=== PATIENT | female | born 1965 | race Caucasian/White ===

== ENCOUNTER → 2018-06-05 01:03 | Outpatient (CLI) | payer OTHER, SELFPAY | PROVIDERS: PCP Nurse Practitioner Family; Visit Provider Dermatology | DX: L40.9 Psoriasis, unspecified (principal) ==

== ENCOUNTER → 2018-06-07 00:56 | Outpatient (CLI) | payer OTHER, SELFPAY | PROVIDERS: PCP Nurse Practitioner Family; Visit Provider Dermatology | DX: L40.9 Psoriasis, unspecified (principal); Z53.8 Procedure and treatment not carried out for other reasons ==

== ENCOUNTER 2018-12-13 07:39 | Emergency (ER) | payer OTHER, SELFPAY ==
[2018-12-13 07:44] VITALS: BP 125/54; PULSE 78; RESP 18; TEMP 37; O2SAT 100
--- NOTE | 2018-12-13 08:09 | DI.RAD_ITS ---
SYMPTOM/DIAGNOSIS: RT SHOULDER PAIN, RT HIP PAIN RIGHT HIP: Two views were obtained. The patient reportedly has a history of mastocytosis. There is a question of diffuse abnormality of marrow pattern, most marked involving femoral neck and proximal metaphysis. The possibility of a space occupying marrow lesion would have to be raised. There is no evidence of acute fracture and the hip joint appears well maintained. RIGHT SHOULDER: Five views were obtained. There is a question of patchy marrow decreased attenuation seen in humeral head and proximal shaft in a patient with known mastocytosis. The findings may represent marrow involvement. No acute fracture. No dislocation. Question is also raised of subtle change in appearance of the ribs which could represent mastocytosis as well. CONCLUSION: No evidence of acute fracture or dislocation.
[2018-12-13] MEDS: Acetaminophen 500 MG TAB 1000 MG PO (08:17)
[2018-12-13] MEDS: Lidocaine 5% Patch 2 PATCH TP (08:17)
--- NOTE | 2018-12-13 08:21 | W.ED.GENAD ---
Discharge Plan Disposition Patient Disposition: HOME Condition: Good Discharge Details Chief Complaint: GenMedical Clinical Impression: Tendinitis, Acute pain of right shoulder, Acute pain of right hip Primary Care Provider: Anni Carmen ED Provider: Benji Phoenix Home Meds and New Rx's Prescriptions: New lidocaine [Lidoderm] 1 PATCH patch 1 patch Topical Q24H Qty: 4 RF: 0 No Action cetirizine 10 MG tablet 10 mg PO DAILY Qty: 90 RF: 3 montelukast 10 MG tablet 10 mg PO DAILY Qty: 90 RF: 3 ibuprofen 600 MG tablet 600 mg PO TID PRNRF: 0 clobetasol 0.05 % cream 1 applic TP BID RF: 0 calcipotriene 0.005 % cream 1 applic TP BID RF: 0 Discharge Instructions Instructions: Tendinitis (ED) Additional Instructions: Please use ice, Tylenol for control of your pain. Please use Lidoderm patches as directed. If you notice any redness, warmth or worsening of your pain please return immediately. Please make sure to make your follow-up appointment this Sunday with your specialist in [place]. if you notice any worsening of your symptoms, or any new symptoms such as vomiting, diarrhea, fever, chills, shortness of breath, chest pain, numbness, weakness, or fainting , please return immediately to the emergency department for reevaluation. Please follow up with your primary care provider as soon as possible for reassessment and reevaluation. As always, it was a pleasure participating in your medical care today. Referrals: Anni Carmen, ELECTRICAL LABORATORY TECHNICIAN [Primary Care Provider] - Medical Decision Making This is a pleasant 53-year-old female with a past medical history of chronic mastocytosis for which she is normally seen and managed at [place] very closely. She presents today for complaint of right shoulder and right hip pain with no traumatic event, that started last night and continued this morning. She was recently stopped on her normal Rydapt medication 2 weeks ago and started on steroids as she is going to be transitioning to a new clinical trial. She denies any history of recent trauma. She denies any concerning symptoms of fever or chills. Vital signs are normal and reassuring. Physical exam demonstrates pain with external rotation of the shoulder and posterior movement, concern for impingement syndrome versus rotator cuff injury, palpation and exam of the right hip demonstrates pain only with logroll. Normal strength otherwise. Normal neurovascular exam throughout. Signs and symptoms show no signs of significant trauma, however we will get x-rays to rule out acute fracture. She is certainly at risk with her steroid use. We will treat the patient's pain, evaluate for less likely infection, and reassess. 9:06 AM X-rays have been performed, and discussed the case personally with Dr. Harvey, there is no evidence of acute fracture process. He does note that there is some abnormalities in the patient's bone marrow which is most likely secondary to the patient's chronic mastocytosis. No evidence of significant effusion, avascular necrosis or other abnormality for the hip or shoulder. We are still waiting on lab results at this time. 10:27 AM Laboratory workup has returned, minimally elevated white count at 11.13 which is certainly within normal limits for someone who is been on steroids for the last 2 weeks. ESR and CRP are relatively equivocal, mildly elevated ESR at 55, mildly elevated CRP at 2.14. Repeat exam continues to show no signs of warmth, redness, or signs of significant infection on clinical exam. The patient is actually feeling much better after the Lidoderm patches at this time. She feels that she is ready to go home. I did contact Dr. Alarcon the orthopedic surgeon, and he states that he is unfamiliar with the disease and has no additional recommendations based on the labs and imaging and clinical presentation. I did contact the patient's [facility] in [place], and I discussed the case with her, after reviewing the labs, imaging, and clinical scenario she has no additional recommendations but does recommend her continue close follow-up on Sunday. She has requested that the labs and images be sent and faxed to her at a fax number [phone]. These will be sent. With the patient feeling and looking well, no evidence of severe infection on clinical exam, normal and reassuring vital signs, and resolution of her symptoms Lidoderm patch, I feel her symptoms may be secondary to a mild tendinitis or mild ligamentous injury. With no signs of avascular necrosis, fracture or other significant trauma I feel that she can be safely discharged home with close follow-up with her primary care provider. We discussed red flags which to return the patient understands I have extensively reviewed the treatment plan and discharge instructions with the patient and their family. I have addressed all patient concerns at this time. The patient and family was made aware of what symptoms to monitor for that would warrant a return to the emergency department. Discussed the plan with the patient and family, they demonstrate verbal understanding and agreement with our assessment and plan at this time. HPI General Date/Time Provider Initiated Documentation: 12/13/18 07:53. HPI Narrative: This is a 53-year-old female with a past medical history of mastocytosis chronically, who was seen at [place] for multiple clinical trials and manage down there, who presents today for 1 day of right hip and right shoulder pain. It was present last night but relatively mild, however this morning when she got up to go to work she had notable worsening of her symptoms and felt that she could not drive secondary to the pain. Pain is worse with movement, primarily external rotation and posterior movement of the right shoulder, so she is generalized movement of the hip. She describes the pain as aching sensation. She has never had symptoms like this before. She denies any recent trauma or changes in activity. She recently did have a bone density scan which she states was normal, this is performed in [place]. She has been on steroids for the last 2 weeks as she recently stopped her RYDAPT 2 weeks ago as she is about to begin a new clinical trial on a new medication for her mastocytosis. Patient denies any other medication changes. She denies any history of orthopedic problems. She is on Singulair and Zyrtec for her mastocytosis but denies any other current medication use. The patient denies any red flag symptoms of fever, chills, IV drug use, recent infection, sick contacts. She does have a chronic history of a cardiac murmur since childhood. She denies any recent surgical history, or pertinent family history. She denies any history of cardiac disease, any exertional component of her symptomatology, any associated shortness of breath, neck pain, chest pain, or chest pressure. Related Data Home Medications Medication Instructions Recorded Confirmed cetirizine 10 mg PO DAILY #90 tab-cap 03/14/13 12/13/18 montelukast 10 mg PO DAILY #90 tab-cap 03/14/13 12/13/18 ibuprofen 600 mg PO TID PRN tab-cap 09/29/13 12/13/18 calcipotriene 0.005 % topical cream 1 applic TP BID 12/10/18 clobetasol 0.05 % topical cream 1 applic TP BID 12/10/18 12/13/18 lidocaine [Lidoderm] 1 patch TOPICAL Q24H #4 patch 12/13/18 Previous Rx's Medication Instructions Recorded lidocaine [Lidoderm] 1 patch TOPICAL Q24H #4 patch 12/13/18 Allergies Allergy/AdvReac Type Severity Reaction Status Date / Time budesonide [From Entocort EC] Allergy Unknown Unverified 09/18/17 15:23 General Stated Complaint: GenMedical COLBY: 3 Review of Systems Review of Systems All systems reviewed & are unremarkable except as noted in HPI and below PFSH Medical History Abnormal Pap smear of cervix Malignant mastocytosis Psoriasis Social History Smoking and Tabacco status: Never Exam Narrative Exam Narrative: 1.Const: Well-nourished, Well-developed, appearing stated age 2.Eyes: PERRL, no conjunctival injection, and symmetrical lids. 3.ENT: Atraumatic external nose and ears. Moist MM. Neck: Symmetric, trachea midline, No thyromegaly. 4.CVS: +S1/S2, grade 1 murmur is noted. Peripheral pulses 2+ and equal in all extremities. Brisk capillary refill in all extremities. 5.RESP: Unlabored respiratory effort. Clear to auscultation bilaterally. No wheezes rales or rhonchi 6.GI: Soft, Nontender/Nondistended, No hepatosplenomegaly. No guarding or rebound. 7.MSK: Normocephalic/Atraumatic, Extremities w/o deformity. No cyanosis or clubbing, no reproducible tenderness on palpation of the shoulder or the hip, however in regards to the right shoulder notable reproduction of symptoms and pain with external rotation, as well as posterior movement of the shoulder. No evidence of crepitus. Normal strength and movement with abduction, flexion, internal rotation, flexion at the elbow and extension at the elbow. No evidence of numbness tingling or weakness with good sensation throughout, +2 radial pulses bilaterally, good radio adjuster strength, and good movement of fingers and wrist. The patient's right hip also demonstrates no reproducible tenderness on palpation, notable worsening of symptoms with logroll of the right hip. No significant pain with flexion, extension, normal strength of the hip with 5 out of 5 strength for movement in all directions including abduction and abduction. 5 out of 5 strength for plantar and dorsiflexion. +2 dorsalis pedis and posterior tibial pulse bilaterally, sensation intact throughout. Brisk capillary refill. No rednes and no warmth, no signs of an infection. 8.Skin: Warm, Dry. No rashes or lesions. 9.Neuro: senior net programmer II-XII grossly intact. Sensation grossly intact, no focal neurologic deficits. 10.Psych: (AAO) x3. Appropriate mood and affect Course Vital Signs Temperature 37.0 C 12/13/18 07:44 Pulse 78 12/13/18 07:44 Respiratory Rate 18 12/13/18 07:44 Blood Pressure 125/54 L 12/13/18 07:44 Pulse Oximetry 100 12/13/18 07:44 Temperature 37.0 C 12/13/18 07:44 Temperature Source Temporal Artery Scan 12/13/18 07:44 Pulse 78 12/13/18 07:44 Respiratory Rate 18 12/13/18 07:44 Respiratory Effort 12/13/18 08:08 Respiratory Depth Normal 12/13/18 08:08 Respiratory Pattern Normal 12/13/18 08:08 Blood Pressure 125/54 L 12/13/18 07:44 Blood Pressure Position Supine 12/13/18 07:44 Pulse Oximetry 100 12/13/18 07:44 Oxygen Delivery Method Room Air 12/13/18 07:44 Oxygen Flow Rate 0 12/13/18 07:44 Pain Level 10 12/13/18 07:44
[2018-12-13 08:26] LABS: HGB 11.1 g/dL (12.0-15.5); Mean Corp. HGB Concentration 32.6 g/dL (32.0-36.0); Mean Corpuscular Hemoglobin 30.1 pg (27.0-33.0); Mean Corpuscular Volume 92.1 fL (80-95); Mean Platelet Volume 11.5 fL (8.0-11.0); Platelet Count 359 x1000/uL (130-400); RBC 3.69 m/cumm (4.00-5.20); RBC Distribution Width 16.1 % (11.7-14.6); White Blood Cell Count 11.13 k/cumm (4.4-10.8)
[2018-12-13 08:41] LABS: ALT 43 U/L (12-78); AST 14 U/L (15-37); Albumin 3.5 g/dL (3.4-5.0); Alkaline Phosphatase 376 U/L (46-116); Anion Gap 9.3 mmol/L (3-11); BUN 9 mg/dL (7-18); Bilirubin, Total 0.5 mg/dL (0.2-1.0); CO2 26.7 mmol/L (21.0-32.0); CREATININE 0.49 mg/dL (0.55-1.02); Calcium 8.9 mg/dL (8.5-10.1); Chloride 105 mmol/L (98-107); Glucose 87 mg/dL (70-100); Potassium 3.6 mmol/L (3.5-5.1); Sodium 141 mmol/L (136-145); Total Protein 7.7 g/dL (6.4-8.2)
[2018-12-13 08:43] LABS: Absolute Lymphocyte Count 2.45 k/cumm (1.2-3.4); Absolute Monocyte Count 1.11 k/cumm (0.11-0.7); Absolute Neutrophil Count 7.23 k/cumm (1.2-6.7)
[2018-12-13 08:44] LABS: Anisocytosis 2+; Diff Comment Manual Differential; Polychromasia Present
[2018-12-13 08:45] LABS: Poikilocytes 2+
[2018-12-13 08:48] VITALS: BP 110/36; PULSE 75; RESP 14; TEMP 36.8; O2SAT 99
--- NOTE | 2018-12-13 08:49 | NUR.NOTE ---
pt stated that pain is 0/10 without moving and with moving pain is 10/10 er doctor notified Nursing Note:
[2018-12-13 09:03] LABS: C-Reactive Protein 2.14 mg/dL (0.0-0.3)
[2018-12-13 09:18] LABS: ESR 55 MM/HR (0-30)
[2018-12-13 09:30] VITALS: BP 112/48; PULSE 80; RESP 16; O2SAT 98
--- NOTE | 2018-12-13 09:31 | NUR.NOTE ---
pt stated that pain is still 10/10 with movement Nursing Note:
[2018-12-13 10:43] VITALS: BP 105/47; PULSE 73; RESP 16; TEMP 37; O2SAT 96
[2018-12-13 10:44] VITALS: BP 105/47; PULSE 73; RESP 16; TEMP 37; O2SAT 96
== END 2018-12-13 10:54 | disposition home or self-care (01) ==
PROVIDERS: Emergency Provider Student in an Organized Health Care Education/Training Program; PCP Nurse Practitioner Family
DX: M25.511 Pain in right shoulder (principal); M25.551 Pain in right hip; M77.9 Enthesopathy, unspecified; D47.09 Other mast cell neoplasms of uncertain behavior; R70.0 Elevated erythrocyte sedimentation rate; R79.82 Elevated C-reactive protein (CRP)
CPT/HCPCS: 80053; 85652; 99284; 73030; 73502; 85025; 86140

== ENCOUNTER 2019-01-08 08:17 | Outpatient (CLI) | payer OTHER, SELFPAY | END 2019-01-08 08:37 | PROVIDERS: PCP Nurse Practitioner Family; Visit Provider Nurse Practitioner Family | DX: D47.02 Systemic mastocytosis (principal) | CPT/HCPCS: 36415; 86850; 86900; 86901; 86920; 85025 ==

== ENCOUNTER 2019-01-16 01:44 | Outpatient (RCR) | payer OTHER, SELFPAY ==
[2019-01-08 08:43] LABS: Absolute Lymphocyte Count 0.92 k/cumm (1.2-3.4); Absolute Monocyte Count 0.25 k/cumm (0.11-0.7); Absolute Neutrophil Count 2.69 k/cumm (1.2-6.7); HCT 23.3 % (36.0-46.0); HGB 7.7 g/dL (12.0-15.5); Lymphocytes % 23.8; Mean Corpuscular Hemoglobin 30.4 pg (27.0-33.0); Mean Corpuscular Volume 92.1 fL (80-95); Mean Platelet Volume 9.1 fL (8.0-11.0); Monocytes % 6.5; Neutrophils % 69.7; RBC 2.53 m/cumm (4.00-5.20); RBC Distribution Width 18.6 % (11.7-14.6); White Blood Cell Count 3.86 k/cumm (4.4-10.8)
[2019-01-08 09:50] LABS: Anisocytosis 2+; Diff Comment RBC Morph Reviewed; Platelet Count 207 x1000/uL (130-400); Poikilocytes 1+
[2019-01-10] VITALS (7 sets, daily range): BP systolic 106–128; BP diastolic 40–53; PULSE 74–80; RESP 16–18; TEMP 36.1–36.7; O2SAT 98–100
[2019-01-10] MEDS: Acetaminophen 325 MG TAB 650 MG PO (10:51)
[2019-01-10] MEDS: diphenhydrAMINE 25 MG CAP PO (10:51)
[2019-01-15 09:41] LABS: Absolute Monocyte Count 0.14 k/cumm (0.11-0.7); HGB 7.6 g/dL (12.0-15.5); Mean Corpuscular Hemoglobin 30.6 pg (27.0-33.0); Mean Corpuscular Volume 92.7 fL (80-95); Mean Platelet Volume 9.9 fL (8.0-11.0); Platelet Count 186 x1000/uL (130-400); RBC 2.48 m/cumm (4.00-5.20); RBC Distribution Width 19.6 % (11.7-14.6); White Blood Cell Count 2.27 k/cumm (4.4-10.8)
[2019-01-15 10:22] LABS: Absolute Lymphocyte Count 0.75 k/cumm (1.2-3.4); Absolute Neutrophil Count 1.34 k/cumm (1.2-6.7)
[2019-01-15 10:23] LABS: Absolute Eosinophil Count 0.05 k/cumm (0.0-0.7)
[2019-01-15 10:24] LABS: Anisocytosis 2+; Diff Comment Manual Differential; Hypochromasia 2+; Microcytosis 1+; Poikilocytes 1+; Schistocytes 2+
[2019-01-16 10:23] VITALS: BP 120/61; PULSE 81; RESP 18; TEMP 36.4; O2SAT 100
[2019-01-16 10:34] VITALS: BP 116/60; PULSE 73; RESP 18; TEMP 36.4; O2SAT 100
[2019-01-16 10:49] VITALS: BP 114/51; PULSE 74; RESP 18; TEMP 36.6; O2SAT 100
[2019-01-16 11:19] VITALS: BP 114/63; PULSE 75; RESP 18; TEMP 37.2; O2SAT 99
[2019-01-16] MEDS: Normal Saline Flush 10 ML SYR IVP (11:50)
[2019-01-16 12:19] VITALS: BP 124/68; PULSE 79; RESP 18; TEMP 36; O2SAT 99
[2019-01-16 12:48] VITALS: BP 117/53; PULSE 78; RESP 18; TEMP 37.1; O2SAT 100
== END 2019-02-02 23:59 | disposition home or self-care (01) ==
LOC: INF 01:44
PROVIDERS: PCP Nurse Practitioner Family; Visit Provider Internal Medicine
DX: D47.02 Systemic mastocytosis (principal)
CPT/HCPCS: 36415; 36430; 86850; 86900; 86901; 86920; 86945; 85025; P9016

== ENCOUNTER 2019-01-29 08:54 | Outpatient (CLI) | payer OTHER, SELFPAY ==
[2019-01-29 09:48] LABS: Abs Immature Grans 0.01 k/cumm (0.0-0.09); Absolute Basophil Count 0.01 k/cumm (0.0-0.2); Absolute Lymphocyte Count 1.01 k/cumm (1.2-3.4); Absolute Monocyte Count 0.33 k/cumm (0.11-0.7); Absolute Neutrophil Count 1.01 k/cumm (1.2-6.7); Basophils % 0.4; HGB 9.1 g/dL (12.0-15.5); Immature Grans % 0.4; Lymphocytes % 42.6; Mean Corp. HGB Concentration 33.7 g/dL (32.0-36.0); Mean Corpuscular Hemoglobin 32.5 pg (27.0-33.0); Mean Corpuscular Volume 96.4 fL (80-95); Mean Platelet Volume 9.7 fL (8.0-11.0); Monocytes % 13.9; Neutrophils % 42.7; Platelet Count 177 x1000/uL (130-400); RBC Distribution Width 21.1 % (11.7-14.6); White Blood Cell Count 2.37 k/cumm (4.4-10.8)
[2019-01-29 10:14] LABS: Anisocytosis 2+
[2019-01-29 10:15] LABS: Poikilocytes 1+
[2019-01-29 10:16] LABS: Microcytosis 1+
[2019-01-29 10:17] LABS: Polychromasia Present
== END 2019-01-29 09:14 ==
PROVIDERS: PCP Nurse Practitioner Family; Visit Provider Nurse Practitioner Adult Health
DX: D47.02 Systemic mastocytosis (principal)
CPT/HCPCS: 36415; 85025

== ENCOUNTER 2019-02-05 09:27 | Outpatient (CLI) | payer OTHER, SELFPAY ==
[2019-02-05 10:00] LABS: Absolute Basophil Count 0.01 k/cumm (0.0-0.2); Absolute Lymphocyte Count 0.83 k/cumm (1.2-3.4); Absolute Monocyte Count 0.26 k/cumm (0.11-0.7); Absolute Neutrophil Count 1.11 k/cumm (1.2-6.7); Basophils % 0.5; HCT 25.4 % (36.0-46.0); HGB 8.4 g/dL (12.0-15.5); Lymphocytes % 37.6; Mean Corp. HGB Concentration 33.1 g/dL (32.0-36.0); Mean Corpuscular Hemoglobin 32.3 pg (27.0-33.0); Mean Corpuscular Volume 97.7 fL (80-95); Monocytes % 11.8; Neutrophils % 50.1; Platelet Count 176 x1000/uL (130-400); RBC Distribution Width 20.7 % (11.7-14.6); White Blood Cell Count 2.21 k/cumm (4.4-10.8)
[2019-02-05 13:08] LABS: Anisocytosis 2+; Polychromasia Present
== END 2019-02-05 09:47 ==
PROVIDERS: PCP Nurse Practitioner Family; Visit Provider Nurse Practitioner Adult Health
DX: D47.02 Systemic mastocytosis (principal)
CPT/HCPCS: 36415; 85025

== ENCOUNTER 2019-02-12 09:28 | Outpatient (CLI) | payer OTHER, SELFPAY ==
[2019-02-12 10:15] LABS: Absolute Lymphocyte Count 0.75 k/cumm (1.2-3.4); Absolute Monocyte Count 0.19 k/cumm (0.11-0.7); Absolute Neutrophil Count 1.11 k/cumm (1.2-6.7); HCT 24.7 % (36.0-46.0); HGB 8.1 g/dL (12.0-15.5); Lymphocytes % 36.6; Mean Corp. HGB Concentration 32.8 g/dL (32.0-36.0); Mean Corpuscular Hemoglobin 32.5 pg (27.0-33.0); Mean Corpuscular Volume 99.2 fL (80-95); Mean Platelet Volume 9.2 fL (8.0-11.0); Monocytes % 9.3; Neutrophils % 54.1; Platelet Count 221 x1000/uL (130-400); RBC 2.49 m/cumm (4.00-5.20); RBC Distribution Width 20.3 % (11.7-14.6); White Blood Cell Count 2.05 k/cumm (4.4-10.8)
[2019-02-12 11:13] LABS: Anisocytosis 2+; Poikilocytes 1+
== END 2019-02-12 09:48 ==
PROVIDERS: PCP Nurse Practitioner Family; Visit Provider Nurse Practitioner Adult Health
DX: D47.02 Systemic mastocytosis (principal)
CPT/HCPCS: 36415; 85025

== ENCOUNTER 2019-02-26 16:21 | Outpatient (CLI) | payer OTHER, SELFPAY ==
[2019-02-26 16:46] LABS: Absolute Basophil Count 0.01 k/cumm (0.0-0.2); Absolute Lymphocyte Count 0.94 k/cumm (1.2-3.4); Absolute Monocyte Count 0.33 k/cumm (0.11-0.7); Absolute Neutrophil Count 1.32 k/cumm (1.2-6.7); Basophils % 0.4; HCT 25.2 % (36.0-46.0); HGB 8.4 g/dL (12.0-15.5); Lymphocytes % 36.2; Mean Corp. HGB Concentration 33.3 g/dL (32.0-36.0); Mean Corpuscular Hemoglobin 32.6 pg (27.0-33.0); Mean Corpuscular Volume 97.7 fL (80-95); Mean Platelet Volume 8.9 fL (8.0-11.0); Monocytes % 12.7; Neutrophils % 50.7; Platelet Count 178 x1000/uL (130-400); RBC 2.58 m/cumm (4.00-5.20); RBC Distribution Width 18.4 % (11.7-14.6)
[2019-02-26 20:42] LABS: Anisocytosis 2+; Diff Comment RBC Morph Reviewed
== END 2019-02-26 16:41 ==
PROVIDERS: PCP Nurse Practitioner Family; Visit Provider Nurse Practitioner Adult Health
DX: D47.02 Systemic mastocytosis (principal)
CPT/HCPCS: 36415; 85025

== ENCOUNTER 2019-03-05 16:21 | Outpatient (CLI) | payer OTHER, SELFPAY ==
[2019-03-05 16:47] LABS: HCT 24.7 % (36.0-46.0); HGB 8.2 g/dL (12.0-15.5); Mean Corp. HGB Concentration 33.2 g/dL (32.0-36.0); Mean Corpuscular Hemoglobin 32.4 pg (27.0-33.0); Mean Corpuscular Volume 97.6 fL (80-95); Platelet Count 176 x1000/uL (130-400); RBC 2.53 m/cumm (4.00-5.20); RBC Distribution Width 16.9 % (11.7-14.6); White Blood Cell Count 2.42 k/cumm (4.4-10.8)
[2019-03-05 18:51] LABS: Absolute Lymphocyte Count 0.97 k/cumm (1.2-3.4); Absolute Neutrophil Count 1.21 k/cumm (1.2-6.7); Atypical Lymphocytes % 4
[2019-03-05 18:52] LABS: Absolute Monocyte Count 0.24 k/cumm (0.11-0.7); Diff Comment Manual Differential; RBC Morphology Normal
== END 2019-03-05 16:41 ==
PROVIDERS: PCP Nurse Practitioner Adult Health; Visit Provider Nurse Practitioner Adult Health
DX: D47.02 Systemic mastocytosis (principal)
CPT/HCPCS: 36415; 85025

== ENCOUNTER 2019-03-12 16:22 | Outpatient (CLI) | payer OTHER, SELFPAY ==
[2019-03-12 16:51] LABS: Absolute Lymphocyte Count 0.99 k/cumm (1.2-3.4); Absolute Monocyte Count 0.33 k/cumm (0.11-0.7); Absolute Neutrophil Count 1.41 k/cumm (1.2-6.7); HCT 23.6 % (36.0-46.0); HGB 7.9 g/dL (12.0-15.5); Lymphocytes % 36.3; Mean Corp. HGB Concentration 33.5 g/dL (32.0-36.0); Mean Corpuscular Hemoglobin 33.1 pg (27.0-33.0); Mean Corpuscular Volume 98.7 fL (80-95); Mean Platelet Volume 8.7 fL (8.0-11.0); Monocytes % 12.1; Neutrophils % 51.6; Platelet Count 199 x1000/uL (130-400); RBC 2.39 m/cumm (4.00-5.20); RBC Distribution Width 16.5 % (11.7-14.6); White Blood Cell Count 2.73 k/cumm (4.4-10.8)
[2019-03-12 20:21] LABS: Anisocytosis 2+; Diff Comment RBC Morph Reviewed
== END 2019-03-12 16:42 ==
PROVIDERS: PCP Nurse Practitioner Adult Health; Visit Provider Nurse Practitioner Adult Health
DX: D47.02 Systemic mastocytosis (principal)
CPT/HCPCS: 36415; 85025

== ENCOUNTER 2019-03-26 16:21 | Outpatient (CLI) | payer OTHER, SELFPAY ==
[2019-03-26 16:37] LABS: Absolute Basophil Count 0.01 k/cumm (0.0-0.2); Absolute Lymphocyte Count 0.95 k/cumm (1.2-3.4); Absolute Monocyte Count 0.52 k/cumm (0.11-0.7); Absolute Neutrophil Count 1.72 k/cumm (1.2-6.7); Basophils % 0.3; HGB 8.6 g/dL (12.0-15.5); Lymphocytes % 29.7; Mean Corp. HGB Concentration 33.1 g/dL (32.0-36.0); Mean Corpuscular Hemoglobin 32.8 pg (27.0-33.0); Mean Corpuscular Volume 99.2 fL (80-95); Mean Platelet Volume 8.5 fL (8.0-11.0); Monocytes % 16.3; Neutrophils % 53.7; Platelet Count 238 x1000/uL (130-400); RBC 2.62 m/cumm (4.00-5.20); RBC Distribution Width 15.3 % (11.7-14.6)
== END 2019-03-26 16:41 ==
PROVIDERS: PCP Nurse Practitioner Adult Health; Visit Provider Nurse Practitioner Adult Health
DX: D47.02 Systemic mastocytosis (principal)
CPT/HCPCS: 36415; 85025

== ENCOUNTER 2019-04-02 16:29 | Outpatient (CLI) | payer OTHER, SELFPAY ==
[2019-04-02 18:16] LABS: Absolute Basophil Count 0.01 k/cumm (0.0-0.2); Absolute Lymphocyte Count 0.87 k/cumm (1.2-3.4); Absolute Monocyte Count 0.43 k/cumm (0.11-0.7); Absolute Neutrophil Count 1.28 k/cumm (1.2-6.7); Basophils % 0.4; HGB 8.7 g/dL (12.0-15.5); Lymphocytes % 33.6; Mean Corp. HGB Concentration 33.5 g/dL (32.0-36.0); Mean Corpuscular Hemoglobin 33.3 pg (27.0-33.0); Mean Corpuscular Volume 99.6 fL (80-95); Mean Platelet Volume 9.4 fL (8.0-11.0); Monocytes % 16.6; Neutrophils % 49.4; Platelet Count 252 x1000/uL (130-400); RBC 2.61 m/cumm (4.00-5.20); RBC Distribution Width 14.9 % (11.7-14.6); White Blood Cell Count 2.59 k/cumm (4.4-10.8)
[2019-04-02 18:38] LABS: Diff Comment Diff Reviewed; RBC Morphology Normal
== END 2019-04-02 16:49 ==
PROVIDERS: PCP Nurse Practitioner Adult Health; Visit Provider Nurse Practitioner Adult Health
DX: D47.02 Systemic mastocytosis (principal)
CPT/HCPCS: 36415; 85025

== ENCOUNTER 2019-04-09 16:36 | Outpatient (CLI) | payer OTHER, SELFPAY ==
[2019-04-09 17:25] LABS: Absolute Basophil Count 0.01 k/cumm (0.0-0.2); Absolute Lymphocyte Count 0.91 k/cumm (1.2-3.4); Absolute Neutrophil Count 2.39 k/cumm (1.2-6.7); Basophils % 0.3; HCT 27.6 % (36.0-46.0); HGB 9.1 g/dL (12.0-15.5); Lymphocytes % 23.3; Mean Corpuscular Hemoglobin 32.4 pg (27.0-33.0); Mean Corpuscular Volume 98.2 fL (80-95); Mean Platelet Volume 9.2 fL (8.0-11.0); Monocytes % 15.3; Neutrophils % 61.1; Platelet Count 256 x1000/uL (130-400); RBC 2.81 m/cumm (4.00-5.20); White Blood Cell Count 3.91 k/cumm (4.4-10.8)
== END 2019-04-09 16:56 ==
PROVIDERS: PCP Nurse Practitioner Adult Health; Visit Provider Nurse Practitioner Adult Health
DX: D47.02 Systemic mastocytosis (principal)
CPT/HCPCS: 36415; 85025

== ENCOUNTER 2019-10-31 17:25 | Emergency (ER) | payer OTHER, SELFPAY ==
[2019-10-31 17:27] VITALS: BP 118/60; PULSE 79; RESP 16; TEMP 36.6; O2SAT 98
--- NOTE | 2019-10-31 18:26 | ED.GENADUL_ITS ---
Discharge Plan Disposition Patient Disposition: HOME Condition: Stable Discharge Details Chief Complaint: DentalOral Clinical Impression: Parotid sialolithiasis Primary Care Provider: Heather Noel ED Provider: Cheryl Bradford Home Meds and New Rx's Prescriptions: Continued acyclovir 400 mg tablet 400 mg PO TID RF: 0 furosemide 20 mg tablet 20 mg PO DAILY PRN (Reason: edema) RF: 0 omeprazole 20 mg capsule,delayed release(DR/EC) 20 mg PO DAILY RF: 0 Bora-285 100 mg tablet 200 mg PO DAILY RF: 0 cetirizine 10 MG tablet 10 mg PO DAILY Qty: 90 RF: 3 montelukast 10 MG tablet 10 mg PO DAILY Qty: 90 RF: 3 ibuprofen 600 MG tablet 600 mg PO TID PRNRF: 0 clobetasol 0.05 % cream 1 applic TP BID RF: 0 calcipotriene 0.005 % cream 1 applic TP BID RF: 0 tazarotene [Avage] 0.1 % cream 1 applic TP DAILY RF: 0 sertraline 50 mg tablet 50 mg PO DAILY RF: 0 Discharge Instructions Instructions: Parotid Duct Obstruction (ED), Sialoadenitis (ED) Additional Instructions: You appear to have a possible stone in your parotid duct which is 1 of your salivary glands which produces saliva. Follow a soft diet while symptoms present. Use lemon drops to help with prod ucing saliva which likely helps the stone to pass. Alternate Tylenol and ibuprofen as needed and directed for pain. Follow-up with your primary care doctor within 1 week for reevaluation. Return to the emergency department if he develop any worsening or new concerning symptoms such as fever, increased pain, difficulty swallowing or breathing Discharge Data Discharge Date/Time-TO BE ENTERED AT DEPARTURE: 10/31/19 18:34 Discharge Physician: Cheryl Bradford Medical Decision Making 54-year-old female presents with right-sided facial swelling and pain since this morning. She admits to recent URI symptoms which have resolved. She states the area is swollen and hard and feels more painful to touch rather than having significant pain all the time with it. Right sided preauricular facial induration and tenderness without erythema or fluctuance. Appears to be overlying right parotid gland. Do not suspect abscess. No dental abscess or infection in mouth. Normal oropharynx. No lymphadenopathy. No trismus, drooling or submandibular swelling. Appears most likely consistent with sialolithiasis. No evidence of stone within mouth. Patient appears nontoxic and airway intact and do not see an indication for lab work or imaging. Advised to apply warm compresses, Tylenol and Motrin for pain, and use lemon drops. Advised to follow up with the primary care doctor for re-evaluation. Usual and customary return precautions given prior to discharge. HPI General Mode of arrival: ambulatory . Date/Time Provider Initiated Documentation: 10/31/19 17:44 . Limitations to Documentation: no limitations . Information obtained by: patient . History of Present Illness 54 year old F presents to the emergency department with the chief complaint of R facial pain, and is localized to the face. Patient reports no radiation. Patient started experiencing this day(s) (Today) and it has been constant. No relieving factors improve symptom(s), No exacerbating factors reported . Patient notes denies cough, diaphoresis, fever/chills, headaches, loss of appetite, malaise, nausea/vomiting, rash, seizure, shortness of breath, syncope and weakness. Patient did receive the following treatments prior to arrival, none Related Data Home Medications Medication Instructions Recorded Confirmed cetirizine 10 mg PO DAILY #90 tab-cap 03/14/13 05/21/19 montelukast 10 mg PO DAILY #90 tab-cap 03/14/13 05/21/19 ibuprofen 600 mg PO TID PRN tab-cap 09/29/13 05/21/19 calcipotriene 0.005 % topical cream 1 applic TP BID 12/10/18 05/21/19 clobetasol 0.05 % topical cream 1 applic TP BID 12/10/18 05/21/19 acyclovir 400 mg tablet 400 mg PO TID tab 03/03/19 05/21/19 furosemide 20 mg tablet 20 mg PO DAILY PRN 03/03/19 05/21/19 omeprazole 20 mg capsule,delayed 20 mg PO DAILY 03/03/19 05/21/19 release tazarotene 0.1 % topical cream 1 applic TP DAILY 04/23/19 05/21/19 Bora-285 200 mg PO DAILY 04/28/19 05/21/19 sertraline 50 mg tablet 50 mg PO DAILY 06/13/19 Allergies Allergy/AdvReac Type Severity Reaction Status Date / Time budesonide [From Entocort EC] Allergy Unknown Unverified 10/31/19 17:34 General Stated Complaint: DentalOral COLBY: 4 Review of Systems All systems reviewed & are unremarkable except as noted in HPI and below Constitutional Constitutional: Reports as per HPI, Denies chills and Denies fever(s) Eyes Eyes: Denies blurry vision ENT Ears, Nose, Mouth, and Throat: Denies dizziness, Denies sore throat and Denies throat swelling Cardiovascular Cardiovascular: Denies chest pain and Denies dyspnea Respiratory Respiratory: Denies cough and Denies dyspnea Gastrointestinal Gastrointestinal: Denies abdominal pain, Denies diarrhea and Denies vomiting Genitourinary Genitourinary: Denies hematuria and Denies dysuria Musculoskeletal Musculoskeletal: Denies back pain and Denies numbness Integumentary/Breasts Skin/Breast: Denies lesions and Denies rash Neurologic Neurologic: Denies dizziness, Denies focal weakness and Denies numbness Allergic/Immunologic Allergic/Immunologic: Denies throat swelling [facility] Medical History Abnormal Pap smear of cervix 2014 - [facility]. Neg HPV. Colop bx benign. 2017 - [facility]. Neg HPV. Recommend retesting in one year. 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 Harden They are following q 1-2 y, sooner PRN; stable MRI 11/2018 Malignant mastocytosis Osteoporosis (Chronic 11/06/17) [facility] Leukemia program Dr. 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, Avapritnib (2018) Family History Mother , age 69m [place] Heart disease Maternal Uncle , age 47 second [place] Heart disease Maternal Grandmother , age 67 [place] Heart disease Brother FH: mental illness [place] Social History Smoking/Tobacco Use Status: Never Alcohol Intake: never Drug use: Never Household members: none Housing: house Communication Needs: Corrective Lenses Education Level: high school Do you need help understanding health information?: Never current occupation: [employer] What type of physical activity do you participate in: walking Duration: 15-30 minutes/day Frequency: 1-2 times per week Special antonio needs: No Seatbelt use: always Drive intox or ride w/intox car pick up driver: No Fire extinguisher in home: Yes Carbon monox detector in home: Yes Do you feel safe at home: Yes Do you feel safe in your relationship?: Yes Exam Const General: cooperative, healthy appearing and no acute distress HENMT Head: normal to inspection Ears: hearing grossly normal bilaterally, external ears normal and TM's normal bilaterally General nose exam: external nose normal Face images: 1. Moderately indurated and tender area overlying right parotid. No erythema, fluctuance, lesions, rash or open wounds. Mouth: oral mucosae normal, tongue normal, oropharynx normal, moist mucous membranes, no drooling and no trismus Teeth and gingiva: dentition normal Throat: posterior oropharynx normal, uvula midline and no peritonsillar masses Eyes General: appearance normal, both eyes and all related structures Neck Neck: normal visual inspection, full ROM, no lymphadenopathy, no meningeal signs, trachea midline, supple, no anterior neck swelling and No submandibular swelling Resp Effort & Inspection: normal respiratory effort and able to speak in complete sentences Cardio Rate: regular rate Skin General skin exam: no rashes or lesions noted Neuro General: alert, awake and oriented x3 Motor: muscle tone normal throughout Extrem General: normal to inspection and full ROM Psych Appearance: grossly normal Affect: normal affect Course Vital Signs Vital signs: Vital Signs Temperature 97.9 F 10/31/19 17:27 Pulse 79 10/31/19 17:27 Respiratory Rate 16 10/31/19 17:27 Blood Pressure 118/60 10/31/19 17:27 Pulse Oximetry 98 10/31/19 17:27 Temperature 97.9 F 10/31/19 17:27 Temperature Source Skin 10/31/19 17:27 Pulse 79 10/31/19 17:27 Respiratory Rate 16 10/31/19 17:27 Blood Pressure 118/60 10/31/19 17:27 Blood Pressure Position Sitting 10/31/19 17:27 Pulse Oximetry 98 10/31/19 17:27 Oxygen Delivery Method Room Air 10/31/19 17:27 Oxygen Flow Rate 0 10/31/19 17:27 Pain Level 2 10/31/19 17:27
[2019-10-31 18:33] VITALS: BP 118/60; PULSE 79; RESP 16; TEMP 36.6; O2SAT 98
== END 2019-10-31 18:34 | disposition home or self-care (01) ==
PROVIDERS: Emergency Provider Physician Assistant; PCP Nurse Practitioner Adult Health
DX: K11.5 Sialolithiasis (principal)
CPT/HCPCS: 99282

== ENCOUNTER 2020-04-21 03:48 | Outpatient (CLI) | payer OTHER, SELFPAY ==
[2020-04-21 13:46] LABS: Absolute Basophil Count 0.01 k/cumm (0.0-0.2); Absolute Lymphocyte Count 1.31 k/cumm (1.2-3.4); Absolute Monocyte Count 0.56 k/cumm (0.11-0.7); Basophils % 0.3; HCT 30.4 % (36.0-46.0); HGB 10.4 g/dL (12.0-15.5); Lymphocytes % 32.9; Mean Corp. HGB Concentration 34.2 g/dL (32.0-36.0); Mean Corpuscular Hemoglobin 31.8 pg (27.0-33.0); Mean Platelet Volume 9.7 fL (8.0-11.0); Monocytes % 14.1; Neutrophils % 52.7; Platelet Count 300 x1000/uL (130-400); RBC 3.27 m/cumm (4.00-5.20); RBC Distribution Width 13.3 % (11.7-14.6); White Blood Cell Count 3.98 k/cumm (4.4-10.8)
== END 2020-04-21 04:08 ==
PROVIDERS: PCP Nurse Practitioner Adult Health; Visit Provider Nurse Practitioner Adult Health
DX: D47.02 Systemic mastocytosis (principal)
CPT/HCPCS: 85025

== ENCOUNTER 2020-05-21 03:09 | Outpatient (CLI) | payer OTHER, SELFPAY ==
[2020-05-21 13:02] LABS: Absolute Basophil Count 0.01 k/cumm (0.0-0.2); Absolute Lymphocyte Count 1.02 k/cumm (1.2-3.4); Absolute Monocyte Count 0.47 k/cumm (0.11-0.7); Absolute Neutrophil Count 2.22 k/cumm (1.2-6.7); Basophils % 0.3; HCT 32.1 % (36.0-46.0); HGB 10.8 g/dL (12.0-15.5); Lymphocytes % 27.4; Mean Corp. HGB Concentration 33.6 g/dL (32.0-36.0); Mean Corpuscular Hemoglobin 31.5 pg (27.0-33.0); Mean Corpuscular Volume 93.6 fL (80-95); Mean Platelet Volume 9.8 fL (8.0-11.0); Monocytes % 12.6; Neutrophils % 59.7; Platelet Count 292 x1000/uL (130-400); RBC 3.43 m/cumm (4.00-5.20); RBC Distribution Width 13.1 % (11.7-14.6); White Blood Cell Count 3.72 k/cumm (4.4-10.8)
== END 2020-05-21 03:29 ==
PROVIDERS: PCP Nurse Practitioner Adult Health; Visit Provider Internal Medicine Hematology & Oncology
DX: D47.02 Systemic mastocytosis (principal)
CPT/HCPCS: 36415; 85025

== ENCOUNTER 2020-07-20 03:30 | Outpatient (CLI) | payer OTHER, SELFPAY ==
[2020-07-20 09:42] LABS: Absolute Basophil Count 0.02 10^3/uL (0.0-0.2); Absolute Lymphocyte Count 0.77 10^3/uL (1.2-3.4); Absolute Monocyte Count 0.34 10^3/uL (0.1-0.8); Basophils % 0.7; HCT 30.7 % (36.0-46.0); HGB 10.6 g/dL (11.2-15.7); Lymphocytes % 26.3; MCH 32.9 pg (27.0-33.0); MCHC 34.5 % (32.0-36.0); MCV 95.3 fL (80-95); MPV 9.8 fL (8.0-11.0); Monocytes % 11.6; Neutrophils % 61.4; Nucleated RBC 0 %; Platelet Count 263 10^3/uL (130-400); RBC 3.22 10^6/uL (3.93-5.22); RDW 13.5 % (11.7-14.6); RDW-SD 47.5 fL; WBC 2.93 10^3/uL (4.4-10.8)
== END 2020-07-20 03:50 ==
PROVIDERS: PCP Nurse Practitioner Adult Health; Visit Provider Internal Medicine Hematology & Oncology
DX: D47.02 Systemic mastocytosis (principal)
CPT/HCPCS: 36415; 85025

== ENCOUNTER 2020-10-18 02:24 | Outpatient (CLI) | payer OTHER, SELFPAY ==
[2020-10-18 10:21] LABS: Abs Immature Grans 0.01 10^3/uL (0.0-0.06); HCT 30.6 % (36.0-46.0); HGB 10.3 g/dL (11.2-15.7); MCH 31.9 pg (27.0-33.0); MCHC 33.7 % (32.0-36.0); MCV 94.7 fL (80-95); MPV 9.4 fL (8.0-11.0); Nucleated RBC 0 %; RBC 3.23 10^6/uL (3.93-5.22); RDW 12.1 % (11.7-14.6); RDW-SD 42.5 fL; WBC 4.23 10^3/uL (4.4-10.8)
[2020-10-18 10:44] LABS: Absolute Lymphocyte Count 1.06 10^3/uL (1.2-3.4); Absolute Monocyte Count 0.42 10^3/uL (0.1-0.8); Absolute Neutrophil Count 2.75 10^3/uL (1.2-6.7); Bands % 1
[2020-10-18 10:45] LABS: Diff Comment Manual Differential; Platelet Count 282 10^3/uL (130-400); Polychromasia Present
== END 2020-10-18 02:44 ==
PROVIDERS: PCP Nurse Practitioner Adult Health; Visit Provider Internal Medicine Hematology & Oncology
DX: D47.02 Systemic mastocytosis (principal)
CPT/HCPCS: 85025

== ENCOUNTER 2020-12-22 03:10 | Outpatient (CLI) | payer OTHER, SELFPAY ==
[2020-12-22 08:00] LABS: Absolute Basophil Count 0.02 10^3/uL (0.0-0.2); Absolute Lymphocyte Count 0.76 10^3/uL (1.2-3.4); Absolute Monocyte Count 0.37 10^3/uL (0.1-0.8); Basophils % 0.8; HCT 29.4 % (36.0-46.0); HGB 9.9 g/dL (11.2-15.7); Lymphocytes % 29.8; MCH 31.6 pg (27.0-33.0); MCHC 33.7 % (32.0-36.0); MCV 93.9 fL (80-95); MPV 9.2 fL (8.0-11.0); Monocytes % 14.5; Neutrophils % 54.9; Nucleated RBC 0 %; Platelet Count 258 10^3/uL (130-400); RBC 3.13 10^6/uL (3.93-5.22); RDW 14.2 % (11.7-14.6); RDW-SD 49.3 fL; WBC 2.55 10^3/uL (4.4-10.8)
== END 2020-12-22 03:11 | disposition home or self-care (01) ==
LOC: LBO 03:10
PROVIDERS: PCP Nurse Practitioner Adult Health; Visit Provider Internal Medicine Hematology & Oncology
DX: D47.02 Systemic mastocytosis (principal)
CPT/HCPCS: 36415; 85025

== ENCOUNTER 2021-01-26 04:33 | Outpatient (CLI) | payer OTHER, SELFPAY ==
[2021-01-26 16:19] LABS: Abs Immature Grans 0.01 10^3/uL (0.0-0.06); Absolute Basophil Count 0.02 10^3/uL (0.0-0.2); Absolute Lymphocyte Count 1.13 10^3/uL (1.2-3.4); Absolute Monocyte Count 0.62 10^3/uL (0.1-0.8); Basophils % 0.3; HGB 9.3 g/dL (11.2-15.7); Immature Grans % 0.2; Lymphocytes % 17.2; MCH 31.4 pg (27.0-33.0); MCHC 33.2 % (32.0-36.0); MCV 94.6 fL (80-95); MPV 9.3 fL (8.0-11.0); Monocytes % 9.4; Neutrophils % 72.9; Nucleated RBC 0 %; Platelet Count 226 10^3/uL (130-400); RBC 2.96 10^6/uL (3.93-5.22); RDW-SD 48.6 fL; WBC 6.58 10^3/uL (4.4-10.8)
== END 2021-01-26 04:34 | disposition home or self-care (01) ==
LOC: LBO 04:33
PROVIDERS: PCP Nurse Practitioner Adult Health; Visit Provider Internal Medicine Hematology & Oncology
DX: D47.02 Systemic mastocytosis (principal)
CPT/HCPCS: 36415; 85025

== ENCOUNTER 2021-03-18 03:56 | Outpatient (CLI) | payer OTHER, SELFPAY ==
[2021-03-18 08:15] LABS: Absolute Basophil Count 0.02 10^3/uL (0.0-0.2); Absolute Lymphocyte Count 0.88 10^3/uL (1.2-3.4); Absolute Monocyte Count 0.56 10^3/uL (0.1-0.8); Absolute Neutrophil Count 1.62 10^3/uL (1.2-6.7); Basophils % 0.6; HCT 31.8 % (36.0-46.0); HGB 10.4 g/dL (11.2-15.7); Lymphocytes % 28.6; MCHC 32.7 % (32.0-36.0); MCV 94.6 fL (80-95); MPV 9.5 fL (8.0-11.0); Monocytes % 18.2; Neutrophils % 52.6; Nucleated RBC 0 %; Platelet Count 305 10^3/uL (130-400); RBC 3.36 10^6/uL (3.93-5.22); RDW 12.7 % (11.7-14.6); WBC 3.08 10^3/uL (4.4-10.8)
== END 2021-03-18 03:57 | disposition home or self-care (01) ==
LOC: LBO 03:56
PROVIDERS: PCP Nurse Practitioner Adult Health; Visit Provider Internal Medicine Hematology & Oncology
DX: D47.02 Systemic mastocytosis (principal)
CPT/HCPCS: 36415; 85025

== ENCOUNTER 2021-04-28 10:23 | Outpatient (CLI) | payer OTHER, SELFPAY ==
[2021-04-28 09:44] LABS: Abs Immature Grans 0.01 10^3/uL (0.0-0.06); Absolute Basophil Count 0.01 10^3/uL (0.0-0.2); Absolute Lymphocyte Count 0.93 10^3/uL (1.2-3.4); Absolute Monocyte Count 0.52 10^3/uL (0.1-0.8); Absolute Neutrophil Count 2.13 10^3/uL (1.2-6.7); Basophils % 0.3; HGB 10.6 g/dL (11.2-15.7); Immature Grans % 0.3; Lymphocytes % 25.8; MCH 30.4 pg (27.0-33.0); MCHC 33.1 % (32.0-36.0); MCV 91.7 fL (80-95); MPV 9.3 fL (8.0-11.0); Monocytes % 14.4; Neutrophils % 59.2; Nucleated RBC 0 %; Platelet Count 280 10^3/uL (130-400); RBC 3.49 10^6/uL (3.93-5.22); RDW 12.9 % (11.7-14.6); RDW-SD 42.7 fL
== END 2021-04-28 10:24 | disposition home or self-care (01) ==
LOC: LBO 10:27
PROVIDERS: PCP Nurse Practitioner Adult Health; Visit Provider Internal Medicine Hematology & Oncology
DX: D47.02 Systemic mastocytosis (principal)
CPT/HCPCS: 36415; 85025

== ENCOUNTER 2021-06-23 02:59 | Outpatient (CLI) | payer OTHER, SELFPAY ==
[2021-06-23 15:20] LABS: Abs Immature Grans 0.01 10^3/uL (0.0-0.06); Absolute Basophil Count 0.01 10^3/uL (0.0-0.2); Absolute Lymphocyte Count 0.88 10^3/uL (1.2-3.4); Absolute Monocyte Count 0.63 10^3/uL (0.1-0.8); Absolute Neutrophil Count 2.96 10^3/uL (1.2-6.7); Basophils % 0.2; HCT 31.8 % (36.0-46.0); HGB 10.3 g/dL (11.2-15.7); Immature Grans % 0.2; Lymphocytes % 19.6; MCH 28.6 pg (27.0-33.0); MCHC 32.4 % (32.0-36.0); MCV 88.3 fL (80-95); Nucleated RBC 0 %; Platelet Count 313 10^3/uL (130-400); RDW 14.2 % (11.7-14.6); RDW-SD 45.9 fL; WBC 4.49 10^3/uL (4.4-10.8)
== END 2021-06-23 03:00 | disposition home or self-care (01) ==
LOC: LBO 02:59
PROVIDERS: PCP Nurse Practitioner Adult Health; Visit Provider Internal Medicine Hematology & Oncology
DX: D47.02 Systemic mastocytosis (principal)
CPT/HCPCS: 36415; 85025

== ENCOUNTER 2021-07-22 01:42 | Outpatient (CLI) | payer OTHER, SELFPAY ==
[2021-07-22 12:12] LABS: Abs Immature Grans 0.01 10^3/uL (0.0-0.06); Absolute Lymphocyte Count 0.93 10^3/uL (1.2-3.4); Absolute Monocyte Count 0.46 10^3/uL (0.1-0.8); Absolute Neutrophil Count 1.74 10^3/uL (1.2-6.7); HCT 32.6 % (36.0-46.0); HGB 10.7 g/dL (11.2-15.7); Immature Grans % 0.3; Lymphocytes % 29.6; MCH 29.7 pg (27.0-33.0); MCHC 32.8 % (32.0-36.0); MCV 90.6 fL (80-95); MPV 10.1 fL (8.0-11.0); Monocytes % 14.6; Neutrophils % 55.5; Nucleated RBC 0 %; Platelet Count 321 10^3/uL (130-400); RDW 14.2 % (11.7-14.6); RDW-SD 47.5 fL; WBC 3.14 10^3/uL (4.4-10.8)
== END 2021-07-22 01:43 | disposition home or self-care (01) ==
LOC: LBO 01:42
PROVIDERS: PCP Nurse Practitioner Adult Health; Visit Provider Internal Medicine Hematology & Oncology
DX: D47.02 Systemic mastocytosis (principal)
CPT/HCPCS: 36415; 85025

== ENCOUNTER 2021-09-01 02:05 | Outpatient (CLI) | payer OTHER, SELFPAY ==
[2021-09-01 10:26] LABS: Abs Immature Grans 0.01 10^3/uL (0.0-0.06); Absolute Basophil Count 0.01 10^3/uL (0.0-0.2); Absolute Monocyte Count 0.62 10^3/uL (0.1-0.8); Basophils % 0.2; HCT 32.8 % (36.0-46.0); HGB 10.6 g/dL (11.2-15.7); Immature Grans % 0.2; Lymphocytes % 22.2; MCH 29.6 pg (27.0-33.0); MCHC 32.3 % (32.0-36.0); MCV 91.6 fL (80-95); MPV 9.6 fL (8.0-11.0); Monocytes % 15.3; Neutrophils % 62.1; Nucleated RBC 0 %; Platelet Count 291 10^3/uL (130-400); RBC 3.58 10^6/uL (3.93-5.22); RDW 13.7 % (11.7-14.6); RDW-SD 46.3 fL; WBC 4.05 10^3/uL (4.4-10.8)
[2021-09-01 10:27] LABS: Absolute Neutrophil Count 2.52 10^3/uL (1.2-6.7)
== END 2021-09-01 02:06 | disposition home or self-care (01) ==
LOC: LBO 02:05
PROVIDERS: PCP Nurse Practitioner Adult Health; Visit Provider Internal Medicine Hematology & Oncology
DX: D47.02 Systemic mastocytosis (principal)
CPT/HCPCS: 36415; 85025

== ENCOUNTER 2021-10-11 02:46 | Outpatient (CLI) | payer OTHER, SELFPAY ==
[2021-10-11 16:18] LABS: Abs Immature Grans 0.01 10^3/uL (0.0-0.06); Absolute Basophil Count 0.02 10^3/uL (0.0-0.2); Absolute Lymphocyte Count 1.23 10^3/uL (1.2-3.4); Absolute Monocyte Count 0.63 10^3/uL (0.1-0.8); Absolute Neutrophil Count 2.65 10^3/uL (1.2-6.7); Basophils % 0.4; HCT 31.2 % (36.0-46.0); HGB 10.2 g/dL (11.2-15.7); Immature Grans % 0.2; Lymphocytes % 27.1; MCH 29.1 pg (27.0-33.0); MCHC 32.7 % (32.0-36.0); MCV 89.1 fL (80-95); Monocytes % 13.9; Neutrophils % 58.4; Nucleated RBC 0 %; Platelet Count 326 10^3/uL (130-400); RDW 13.3 % (11.7-14.6); RDW-SD 43.5 fL; WBC 4.54 10^3/uL (4.4-10.8)
== END 2021-10-11 02:47 | disposition home or self-care (01) ==
LOC: LBO 02:46
PROVIDERS: PCP Nurse Practitioner Adult Health; Visit Provider Internal Medicine Hematology & Oncology
DX: D47.02 Systemic mastocytosis (principal)
CPT/HCPCS: 36415; 85025

== ENCOUNTER 2021-11-15 02:40 | Outpatient (CLI) | payer OTHER, SELFPAY ==
[2021-11-15 16:38] LABS: Abs Immature Grans 0.02 10^3/uL (0.0-0.06); Absolute Basophil Count 0.03 10^3/uL (0.0-0.2); Absolute Lymphocyte Count 1.17 10^3/uL (1.2-3.4); Absolute Monocyte Count 0.62 10^3/uL (0.1-0.8); Basophils % 0.6; HCT 30.8 % (36.0-46.0); Immature Grans % 0.4; Lymphocytes % 23.2; MCH 29.5 pg (27.0-33.0); MCHC 32.5 % (32.0-36.0); MCV 90.9 fL (80-95); MPV 9.6 fL (8.0-11.0); Monocytes % 12.3; Neutrophils % 63.5; Nucleated RBC 0 %; Platelet Count 310 10^3/uL (130-400); RBC 3.39 10^6/uL (3.93-5.22); RDW 13.7 % (11.7-14.6); RDW-SD 45.8 fL; WBC 5.04 10^3/uL (4.4-10.8)
== END 2021-11-15 02:41 | disposition home or self-care (01) ==
LOC: LBO 02:40
PROVIDERS: PCP Nurse Practitioner Adult Health; Visit Provider Internal Medicine Hematology & Oncology
DX: D47.02 Systemic mastocytosis (principal)
CPT/HCPCS: 36415; 85025

== ENCOUNTER → 2024-02-22 00:19 | Outpatient (CLI) | payer OTHER, SELFPAY ==
--- NOTE | 2024-02-22 15:23 | DI.MAMMO_ITS ---
Exam(s) MAMMO SCREENING EXAM: MAMMO SCREENING CLINICAL HISTORY: screening,Z12.39 TECHNIQUE: Mammograms were interpreted according to the usual protocol including computer analysis w [employer] CAD system, tomosynthesis and C-view imaging. COMPARISON: 2014 and 2016 FINDINGS: The breasts are composed of scattered fibroglandular densities, Breast Density category B. No suspicious masses or suspicious microcalcifications are seen. No skin thickening or abnormal axillary lymph nodes are seen. There has been no significant change from prior exams. IMPRESSION: BI-RADS Category 1, Negative mammogram Yearly screening mammography is recommended. Breast Density - Category B, scattered fibroglandular densities. A negative radiographic report should not delay biopsy if a dominant or clinically suspicious mass is present. Up to ten percent of cancers are not identified on mammography. A negative report may reinforce clinical impression. Adenosis and dense breasts may obscure an underlying neoplasm. False positive reports average 6 to 10%. Patient will receive a letter notifying them of these results.
== END ==
PROVIDERS: PCP Nurse Practitioner Adult Health; Visit Provider Nurse Practitioner Adult Health
DX: Z12.31 Encounter for screening mammogram for malignant neoplasm of breast (principal)
CPT/HCPCS: 77063; 77067

== ENCOUNTER 2024-02-22 16:19 | Outpatient (REF) | payer OTHER, SELFPAY ==
--- NOTE | 2024-02-22 16:00 | PAPFT_PTH ---
PATIENT: Chantell Dale LOC: [facility] U#:[id number] AGE/SX: 58/F ROOM: RE02/22/[address]: Em Vang : 1965 BED: DIS: 02/22/2024 SPEC #: [id number] RECD: 02/22/24 16:50 STATUS: MARY KAY RESimin #: [id number] JEAN: 02/22/24 16:[address]: Em Vang DEPT: [facility] Cytology RECD BY: Herminia Choi ENTERED: 02/22/24 16:50 SP TYPE: PAPFT OT DR: Heather Noel APRN Tissues: 1 - CX/ENDOCX FOR PAP SMEARS Procedures: PAP THIN PREP/[facility] Screening HPV DNA PROBE Comments: [id number] (HPV 16 & 18/45)
== END 2024-02-22 16:20 | disposition home or self-care (01) ==
LOC: LBN 16:19
PROVIDERS: PCP Nurse Practitioner Adult Health; Visit Provider Obstetrics & Gynecology Gynecology
DX: Z01.419 Encounter for gynecological examination (general) (routine) without abnormal findings (principal)
CPT/HCPCS: 88142; 87624

== ENCOUNTER 2024-03-26 08:21 | Day surgery (SDC) | payer OTHER, SELFPAY ==
[2024-03-26 08:25] VITALS: BP 113/75; PULSE 81; RESP 16; TEMP 36; O2SAT 98
[2024-03-26] MEDS: Lactated Ringers 1,000 ML 80 ML IV (09:01)
--- NOTE | 2024-03-26 10:10 | ANES.PREOP_ITS ---
General Info Date of Service Date Performed: 03/26/24 Height: 5 ft 6 in Weight: 67.1 kg Body Mass Index (BMI): 23.8 Surgical Procedure: Operation Date: 03/26/24 10:05 Proposed Procedure Side Surgeon p Mikayla Rivera MD Meds Allergies and Home Medications Allergies Allergy/AdvReac Type Severity Reaction Status Date / Time budesonide [From Entocort EC] Allergy Mild Skin Rash Verified 03/26/24 08:45 aspirin AdvReac Unknown Other (See Verified 03/26/24 08:45 Comment) Home Medication Medication Instructions Recorded montelukast 10 mg tablet 10 mg PO DAILY #90 tab-caps 03/14/13 ibuprofen 600 mg tablet 600 mg PO TID PRN 09/29/13 omeprazole 20 mg capsule,delayed 20 mg PO DAILY 03/03/19 release cetirizine 10 mg tablet (Zyrtec) 10 mg PO DAILY 01/31/24 avapritinib 50 mg tablet 50 mg PO DAILY 02/22/24 bisacodyl 5 mg tablet,delayed 5 mg PO ONCE #4 tabs 03/13/24 release (Dulcolax (bisacodyl)) polyethylene glycol 3350 17 17 g PO ONCE #238 grams 03/13/24 gram/dose oral powder Current Visit Medications: Current Medications Generic Name Dose Route Start Last Admin Trade Name Robyn PRN Reason Stop Dose Admin Ringer's Solution 1,000 mls @ 80 mls/hr 03/26/24 06:00 03/26/24 09:01 IV 03/26/24 23:59 80 mls/hr INFUSION RAMEZ Administration IV Miscellaneous Supplies 1 each 03/26/24 06:00 Iv Access IV 03/26/24 23:59 DIRECTED RAMEZ Sodium Chloride 0 ml 03/26/24 06:00 Normal Saline Flush 10 Ml Syr IV 03/26/24 23:59 PRN PRN Sodium Chloride 0 ml 03/26/24 06:00 Normal Saline 10 Ml Vial IJ 03/26/24 23:59 DIRECTED PRN Sterile Water 0 ml 03/26/24 06:00 Water,Injection,Sterile 10 Ml Vial IJ 03/26/24 23:59 DIRECTED PRN PFSH Active Problems Active Problems: Problem Status Onset Code Mastocytosis D47.09 Atypical squamous cell changes of undetermined significance (ASCUS) on cervical cytology with negative high risk human papilloma virus (HPV) test result 08/31/05 R87.610 H/O ascites 02/23/12 Z87.898 Low grade squamous intraepithelial lesion (LGSIL) on Papanicolaou smear of cervix 09/13/15 R87.612 History of HPV infection Z86.19 Systemic mast cell disease 11/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 Sensation of fullness in right ear Depression [facility] 06[facility]2019[facility] 07/[facility]/19 [facility] ENT Abnormal Pap smear of cervix 2014 - LGSIL. Neg HPV. Colop bx benign. 2016 - LGSIL. Neg HPV. Recommend retesting in one year. Psoriasis Malignant mastocytosis Tobacco Smoking/Tobacco Use Status: Never Passive smoking exposure: No Alcohol Alcohol Intake: current Alcohol intake frequency: a few times a week Substance Use Substance use: Never Substance use type: does not use Prental History History 2 1 Para Hx # Term Pregnancies Multiple births Hx # Pregnancies Ectopic pregnancies AB induced 1 Hx Number of Living Children AB spontaneous Vital Signs and Lab Results Vital Signs Most Recent Vital Signs in EMR: Most Recent Vital Signs Temp Pulse Resp BP Pulse Ox 36 C L 81 16 113/75 98 03/26/24 08:25 03/26/24 08:25 03/26/24 08:25 03/26/24 08:25 03/26/24 08:25 Lab Results Blood Type / Crossmatch: No Data to Display Complete Blood Count: No Data to Display Complete Metabolic Panel: No Data to Display Liver Function Panel: No Data to Display Coagulation Panel: No Data to Display Cardiac Panel: No Data to Display Arterial Blood Gas: No Data to Display Venous Blood Gas: No Data to Display Pancreas Panel: No Data to Display Thyroid Panel: No Data to Display Infectious Disease: No Data to Display Blood Cultures: No Data to Display Toxicology Panel: No Data to Display Anesthesia Assessment and Plan Anesthesia History Personal History: No History of Anesthesia Complications Family History: No Family History of Anesthesia Complications Exercise Tolerance Exercise Tolerance: Metabolic Equivalents>4 Pertinent Negatives Pertinent Negatives: No Symptoms of GERD, No Major Cardiovascular Symptoms or Complaints and No Major Pulmonary Symptoms or Complaints Cardiac & Pulmonary Exam Cardiac Exam: Normal S1/S2 Heart Sounds Pulmonary Exam: Clear Bilateral Breath Sounds Implantable Cardiac Device Does patient have a Pacemaker or an ICD?: No Airway Exam Known Difficult Airway: No Mallampati Class: 2 Mouth Opening: Normal (> 3cm) Thyromental Distance: Less than 3 cm Neck Range of Motion: Full ROM Neck Circumference: Normal Teeth Condition: Normal Dentition ASA Classification ASA Score: ASA 3 Emergency Case?: No NPO Status NPO Status: NPO Clears >2 hours, Solids >8 hours Anesthesia Plan Resuscitation Status: Full Code Anesthesia Technique: General Anesthesia Airway Planned: Natural Airway Monitors Used: Standard Monitors
--- NOTE | 2024-03-26 10:10 | W.COLOREPORT ---
Date of service: 03/26/24 Time of Service: 10:10 Colonoscopy Report Procedure Description: PROCEDURES PERFORMED: 1. Colonoscopy PREOPERATIVE DIAGNOSIS: Screening colonoscopy POSTOPERATIVE DIAGNOSIS: Minimal sigmoid diverticular changes, grade 1 internal hemorrhoids SURGEON: Nohemi Rivera MD INDICATION for procedure: The patient is a 58-year-old woman who does not have any symptoms and is due for screening colonoscopy. She had a colonoscopy 15+ years ago for non-screening reasons related to a systemic disease/diagnostic process. She does not have a family history of colon cancer. FINDINGS: Normal terminal ileum. No polyps anywhere. Minimal changes in the sigmoid colon only for diverticulosis but overall very mild and no inflammation. Mild internal hemorrhoid disease. SURVEILLANCE interval/FOLLOW-UP: 10 years SPECIMENS: none EBL: Minimal COMPLICATIONS: None QUALITY of prep: Excellent Procedure in detail: The patient gave written consent and was in agreement with the indications, the potential risks as well as the benefits of the procedure. They were taken to the endoscopy suite and laid in the left lateral decubitus position. A timeout was performed and anesthesia was administered which was tolerated well. I started the procedure. Digital rectal and visual examination was performed and grossly within normal limits. A well-lubricated flexible colonoscope was then introduced and passed without any notable difficulty all the way to the cecum identified by the ileocecal valve and the appendiceal orifice. Terminal ileum was normal. The scope was then slowly withdrawn with the above-noted findings. The patient tolerated the procedure well and was taken to the PACU in hemodynamically stable condition.
--- NOTE | 2024-03-26 10:11 | PDOC.DSDIS_ITS ---
Date of service: 03/26/24 Time of Service: 10:11 Discharge Plan Disposition Patient Disposition: Home Condition: Good Discharge Details Attending Provider: Harley Rivera Primary Care Provider: Heather Noel Home Meds and New Rx's Prescriptions: No Action avapritinib 50 mg tablet 50 mg PO DAILY Patient Comments: 02/22/24- pt took same med under different name- Bora 285 during trial period. Rx Instructions: must be taken on empty stomach, at least 1 hr before or 2-3 hrs after meal/food bisacodyl [Dulcolax (bisacodyl)] 5 mg tablet,delayed release (DR/EC) 5 mg PO ONCE Qty: 4 0RF Rx Instructions: Take per colonoscopy instructions provided by ordering providers office polyethylene glycol 3350 17 gram/dose powder 17 g PO ONCE Qty: 238 0RF Rx Instructions: Take per colonoscopy instructions provided by ordering providers office omeprazole 20 mg capsule,delayed release(DR/EC) 20 mg PO DAILY Patient Comments: [facility] cetirizine [Zyrtec] 10 mg tablet 10 mg PO DAILY montelukast 10 MG tablet 10 mg PO DAILY Qty: 90 ibuprofen 600 MG tablet 600 mg PO TID PRN Discharge Instructions Additional Instructions: FINDINGS: No polyps were found. You have some very small diverticular changes in your sigmoid colon which is extremely common, benign and nothing needs to be done about it. Repeat another colonoscopy in 10 years. Activity:: Activity as Tolerated Diet:: As Tolerated
[2024-03-26 10:13] VITALS: BMI 23.8
[2024-03-26 10:47] VITALS: BP 119/64; PULSE 74; RESP 16; TEMP 36.4; O2SAT 97
--- NOTE | 2024-03-26 12:37 | W.ANESPOSTOP ---
Postoperative Evaluation Date, Time and Location Date Performed: 03/26/24 Time Performed: 11:00 Patient Location: Day Surgery Unit Vital Signs Most Recent Imported Vital Signs: Most Recent Vital Signs Temp Pulse Resp BP Pulse Ox 36.4 C L 74 16 119/64 97 03/26/24 10:47 03/26/24 10:47 03/26/24 10:47 03/26/24 10:47 03/26/24 10:47 Assessment Mental Status: Awake (Alert & Oriented to Patient Baseline) Airway and Respiratory Function: Patent airway with normal (patient baseline) respiratory exam Cardiovascular Function: Hemodynamically Stable Hydration Status: Adequately Hydrated Nausea & Vomiting: No Nausea or Vomiting Pain: Pt. Denies Any Pain Peripheral Nerve Block: Patient did not receive a nerve block
== END 2024-03-26 11:50 | disposition home or self-care (01) ==
PROVIDERS: PCP Nurse Practitioner Adult Health; Visit Provider Student in an Organized Health Care Education/Training Program
PROC: 0DJD8ZZ Inspection of Lower Intestinal Tract, Via Natural or Artificial Opening Endoscopic (ICD-10-PCS; CPT 45378; principal; 2024-03-26 10:00)
DX: Z12.11 Encounter for screening for malignant neoplasm of colon (principal); K57.30 Diverticulosis of large intestine without perforation or abscess without bleeding; K64.0 First degree hemorrhoids
CPT/HCPCS: 45378; 00123; J2704

== ENCOUNTER 2025-02-25 11:46 | Outpatient (REF) | payer OTHER, SELFPAY | END 2025-02-25 11:47 | disposition home or self-care (01) | LOC: LBN 11:46 | PROVIDERS: PCP Nurse Practitioner Adult Health; Visit Provider Obstetrics & Gynecology | DX: Z11.51 Encounter for screening for human papillomavirus (HPV) (principal); Z01.419 Encounter for gynecological examination (general) (routine) without abnormal findings; R87.810 Cervical high risk human papillomavirus (HPV) DNA test positive | CPT/HCPCS: 88142; 87624 ==

== ENCOUNTER 2025-04-03 10:44 | Outpatient (CLI) | payer OTHER, SELFPAY ==
[2025-04-03 10:50] LABS: Calculated LDL 106 mg/dL (<100); Cholesterol 167 mg/dL (<200); HDL Cholesterol 46 mg/dL (>or=50); Triglyceride 75 mg/dL (<150)
== END 2025-04-03 10:45 | disposition home or self-care (01) ==
LOC: LBO 10:45
PROVIDERS: PCP Nurse Practitioner Adult Health; Visit Provider Nurse Practitioner Adult Health
DX: Z13.220 Encounter for screening for lipoid disorders (principal)
CPT/HCPCS: 36415; 80061

== ENCOUNTER 2025-04-08 00:49 | Outpatient (CLI) | payer OTHER, SELFPAY ==
--- NOTE | 2025-04-08 07:49 | DI.MAMMO_ITS ---
Exam(s) MAMMO SCREENING EXAM: MAMMO SCREENING CLINICAL HISTORY: screening,z12.39 TECHNIQUE: Bilateral full field digital CC and MLO mammographic images were obtained with 3D tomosyn thesis and utilizing computer aided detection (CAD). COMPARISON: Available for comparison. FINDINGS: Masses/Architectural Distortion: No suspicious masses or areas of architectural distortion are presen t. Microcalcifications: No suspicious pleomorphic-type are seen. Skin Thickening/Nipple Retraction: None. IMPRESSION: 1. No significant interval change with no specific features of malignancy noted. 2. Unless there is more urgent need, screening mammography is recommended, as per [place] guidelines. BI-RADS Category 1 - Negative Breast Density - Category C - The breast are heterogeneously dense, which may obscure small masses. Breast density Category C or D implies that the patient has dense breast tissue. Dense breast tissue can make it harder to find cancer on a mammogram. Dense breast tissue is also associated with an incr eased risk of breast cancer. This information about the result of the mammogram report was provided to the patient to raise their awareness. Use this report when you speak with the patient about their risks for breast cancer, which includes their family history. At that time, you may recommend additional screening tests (Ultrasoun d or MRI) as these tests may add significant information. A negative radiographic report should not delay biopsy if a dominant or clinically suspicious mass is present. Up to ten percent of cancers are not identified on mammography. A negative report may reinforce clinical impression. Adenosis and dense breasts may obscure an underlying neoplasm. False positive reports average 6 to 10%. Patient will receive a letter notifying them of these results.
== END 2025-04-08 01:09 ==
LOC: DI 00:51
PROVIDERS: PCP Nurse Practitioner Adult Health; Visit Provider Obstetrics & Gynecology
DX: Z12.31 Encounter for screening mammogram for malignant neoplasm of breast (principal); R92.333 Mammographic heterogeneous density, bilateral breasts
CPT/HCPCS: 77063; 77067

== ENCOUNTER 2025-06-02 17:43 | Outpatient (REF) | payer OTHER, SELFPAY | END 2025-06-02 17:44 | disposition home or self-care (01) | LOC: LBN 17:43 | PROVIDERS: PCP Nurse Practitioner Adult Health; Visit Provider Obstetrics & Gynecology | DX: L90.9 Atrophic disorder of skin, unspecified (principal) | CPT/HCPCS: 88305; 88361 ==